=== PATIENT | female | born 2000 | race Two or more races ===

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

== ENCOUNTER → 2019-03-03 | Emergency (ER) | payer OTHER ==
--- NOTE | 2019-03-03 19:22 | NUR ---
CALLED FOR PT IN [place]. NO RESPONSE
--- NOTE | 2019-03-03 19:44 | NUR ---
CALLED PT IN WAITING ROOM. NO RESPONSE.
--- NOTE | 2019-03-03 20:48 | NUR ---
CALLED PT IN WAITING ROOM. NO RESPONSE.
== END | disposition left against medical advice (07) ==
LOC: ER 19:18
DX: Z53.21 Procedure and treatment not carried out due to patient leaving prior to being seen by health care provider (principal)